=== PATIENT | male | born 1990 | race African-American/Black ===

== ENCOUNTER 2016-10-24 13:15 | Emergency (ER) | payer OTHER ==
[~2016-10-24] VITALS: Ht 177.8 cm; Wt 90.1 kg
[2016-10-24] MEDS ORDERED: FLEXERIL10 MG PO (14:55)
[2016-10-24] MEDS ORDERED: MOTRIN600 MG PO (14:55)
[2016-10-24 15:17] VITALS: BP 113/61
== END 2016-10-24 15:18 | disposition home or self-care (01) ==
LOC: EME 13:15 → EDBD 13:15 → EME 15:18
DX: S13.4XXA Sprain of ligaments of cervical spine, initial encounter (principal); M62.830 Muscle spasm of back; R07.9 Chest pain, unspecified; V43.62XA Car passenger injured in collision with other type car in traffic accident, initial encounter; Y92.410 Unspecified street and highway as the place of occurrence of the external cause; F17.200 Nicotine dependence, unspecified, uncomplicated
CPT/HCPCS: 93005; 99281; 99284